=== PATIENT | female | born 1985 | race Caucasian/White ===

== ENCOUNTER 2016-08-28 15:56 | Emergency (ER) | payer BC, MEDICAID ==
[2016-08-28 16:30] VITALS: BP 103/59
--- NOTE | 2016-08-28 17:08 | UC ---
Complaint Female HPI - History Of Current Complaint Chief Complaint: [facility] Stated Complaint: PERSONAL Time Seen by Provider: 08/28/16 17:02 Hx Obtained From: Patient Hx Last Menstrual Period: 08/07/16 ?: No Onset/Duration: Gradual Onset, Lasting Weeks - 1, Worse Since - onset Timing: Constant Severity Initially: Mild Severity Currently: Moderate Character: Burning Associated Signs And Symptoms: Positive: Vaginal Discharge - white Related Hx: - 2, Para - 2 - Risk Factors Ectopic Risk Factor: Maternal Age ^ 30 - Allergies/Home Medications Allergies/Adverse Reactions: Allergies Allergy/AdvReac Type Severity Reaction Status Date / Time Amoxicillin [From Augmentin] AdvReac See Comment Verified 08/28/16 16:30 Clavulanic Acid AdvReac See Comment Verified 08/28/16 16:30 [From Augmentin] Home Medications: Home Medications Gabapentin CAP(*) [Neurontin 100 mg CAP(*)] 1 tab PO QID 08/28/16 [History Confirmed 08/28/16] Risperidone 2.5 mg PO BID 08/28/16 [History Confirmed 08/28/16] PMH/Surg Hx/FS Hx/Imm Hx Previously Healthy: Yes Other History Of: Negative For: HIV - Surgical History Surgical History: None - Family History Known Family History: Positive: Unknown - Adopted. - Social History Occupation: Employed Full-time Lives: With Family Alcohol Use: None Substance Use Type: None Substance Use Comment - Amount & Last Used: CAFFEINE Smoking Status (MU): Heavy Every Day Tobacco Smoker Type: Cigarettes Amount Used/How Often: 1/2-1 PPD Length of Time of Smoking/Using Tobacco: 16 YRS Cessation Counseling: Patient Advised to Stop Review of Systems All Other Systems Reviewed And Are Negative: Yes Physical Exam Triage Information Reviewed: Yes Appearance: Well-Appearing, No Pain Distress, Well-Nourished Vital Signs: Initial Vital Signs Temp 98.4 F 08/28/16 16:25 Pulse 89 08/28/16 16:25 Resp 16 08/28/16 16:25 BP 103/59 08/28/16 16:25 Pulse Ox 97 08/28/16 16:25 Vital Signs Reviewed: Yes Eyes: Positive: Conjunctiva Clear ENT: Positive: Pharynx normal, TMs normal Neck exam: Normal Respiratory Exam: Normal Cardiovascular Exam: Normal Abdomen Description: Negative: Nontender - Mild right lower quadrant, McBurney' s Point Tenderness, Peritoneal Signs Musculoskeletal Exam: Normal Neurological Exam: Normal Psychological Exam: Normal Skin Exam: Normal Complaint Female Dx - Differential Dx/Diagnosis Differential Diagnosis/HQI/PQRI: Appendicitis, Cervicitis, Urinary Tract Infection Provider Diagnoses: Vaginitis Discharge - Discharge Plan Condition: Stable Disposition: HOME Prescriptions: Fluconazole [Fluconazole 150 mg tab] 150 mg PO ONCE #1 tab Metronidazole [Flagyl 500 MG TAB] 500 mg PO BID #14 tab Patient Education Materials: Bacterial Vaginosis (ED), Vaginitis (ED), Fluconazole (By mouth), Metronidazole (By mouth)
== END 2016-08-28 17:27 | disposition home or self-care (01) ==
LOC: UCCORT 15:56
DX: N76.0 Acute vaginitis (principal); F17.210 Nicotine dependence, cigarettes, uncomplicated
CPT/HCPCS: 99212; G0463

== ENCOUNTER 2017-12-03 16:15 | Emergency (ER) | payer BC ==
--- NOTE | 2017-12-03 16:24 | UC ---
Skin Complaint HPI - HPI Summary HPI Summary: 32 yo female presents with sore to the underside of her upper lip noticed last night. She is very concerned about this because she has a hx of genital herpes and is concerned this is a sign of an outbreak. She denies injury, fever, chills. She is still smoking daily. - History of Current Complaint Time Seen by Provider: 12/03/17 16:24 Stated Complaint: SORE ON LIP Hx Obtained From: Patient Hx Last Menstrual Period: 08/07/16 Onset/Duration: Sudden Onset Onset Severity: Mild Current Severity: Mild Pain Intensity: 3 Pain Scale Used: 0-10 Numeric - Allergy/Home Medications Allergies/Adverse Reactions: Allergies Allergy/AdvReac Type Severity Reaction Status Date / Time amoxicillin Allergy Intermediate fainting Verified 12/03/17 16:20 clavulanic acid Allergy Intermediate fainting Verified 12/03/17 16:20 Review of Systems Constitutional: Negative Skin: Other - Lip lesions ENT: Negative Respiratory: Negative Cardiovascular: Negative Gastrointestinal: Negative Neurological: Negative Psychological: Negative All Other Systems Reviewed And Are Negative: Yes PMH/Surg Hx/FS Hx/Imm Hx Psychological History: Anxiety Other History Of: Negative For: HIV - Surgical History Surgical History: None - Family History Known Family History: Positive: Unknown - Adopted. - Social History Occupation: Employed Full-time Lives: With Family Alcohol Use: None Substance Use Type: None Substance Use Comment - Amount & Last Used: CAFFEINE Smoking Status (MU): Heavy Every Day Tobacco Smoker Type: Cigarettes Amount Used/How Often: 1/2-1 PPD Length of Time of Smoking/Using Tobacco: 16 YRS Physical Exam - Summary Physical Exam Summary: GENERAL: NAD. WDWN. No pain distress. SKIN: Underside of upper lip with 1mm blister with erythematous base. Mild TTP. No drainage or open wound. HEENT: Head: AT/NC Throat: Posterior oropharynx without exudates, erythema, or tonsillar enlargement. Uvula midline. NECK: Supple. Nontender. No lymphadenopathy. CHEST: CTAB. No r/r/w. No accessory muscle use. Breathing comfortably and in no distress. CV: RRR. Without m/r/g. Pulses intact. Cap refill <2seconds NEURO: Alert. PSYCH: Age appropriate behavior. Triage Information Reviewed: Yes Vital Signs: Vital Signs: Temp Pulse Resp BP Pulse Ox 98.3 F 99 18 134/89 98 10/14/18 16:21 12/03/17 16:21 12/03/17 16:21 12/03/17 16:21 12/03/17 16:21 Vital Signs Reviewed: Yes Course/Dx - Course Course Of Treatment: Suspect cold sore. Will treat with acyclovir cream. - Diagnoses Provider Diagnoses: Cold sore Discharge - Sign-Out/Discharge Documenting (check all that apply): Patient Departure All imaging exams completed and their final reports reviewed: No Studies - Discharge Plan Condition: Stable Disposition: HOME Prescriptions: Acyclovir OINT 5%(NF) [Zovirax Oint 5%(NF)] 1 applic TOPICAL QID #1 tube Patient Education Materials: Oral Herpes Simplex Virus Infections (ED) Forms: *Work Release Referrals: Jasmyn Purvis MD [Primary Care Provider] - Additional Instructions: If you develop a fever, shortness of breath, chest pain, new or worsening symptoms - please call your PCP or go to the ED. Your blood pressure was high at todays visit. Please see your primary provider within 4 weeks for recheck and re-evaluation. - Billing Disposition and Condition Condition: STABLE Disposition: Home
[2017-12-03 16:28] VITALS: BP 134/89
== END 2017-12-03 16:44 | disposition home or self-care (01) ==
LOC: UCEAST 16:15
DX: B00.1 Herpesviral vesicular dermatitis (principal); R03.0 Elevated blood-pressure reading, without diagnosis of hypertension; F17.210 Nicotine dependence, cigarettes, uncomplicated; Z88.1 Allergy status to other antibiotic agents
CPT/HCPCS: 99212; G0463

== ENCOUNTER 2019-06-02 14:33 | Emergency (ER) | payer BC ==
--- NOTE | 2019-06-02 15:21 | UC ---
UC General HPI - HPI Summary HPI Summary: Nurse's notes: Pt. experiencing anxiety past 3 nights. Pt. states that she can hear other people's voice in her own mind when they are not speaking, pt. has been very thirsty past 2 days, lips burning, loose stools past wk. Upon my entrance into the room, patient states to me that she would like her gabapentin increased. She informed me she had called her doctor's office and left a message but no one had called her back. - History of Current Complaint Chief Complaint: UCGeneralIllness Stated Complaint: PERSONAL Time Seen by Provider: 06/02/19 14:39 Hx Obtained From: Patient Hx Last Menstrual Period: iud Onset/Duration: Gradual Onset Timing: Constant Onset Severity: Mild Current Severity: Mild Pain Intensity: 3 - Allergy/Home Medications Allergies/Adverse Reactions: Allergies Allergy/AdvReac Type Severity Reaction Status Date / Time amoxicillin Allergy Intermediate fainting Verified 06/02/19 14:43 clavulanic acid Allergy Intermediate fainting Verified 06/02/19 14:43 Home Medications: Home Medications Mv-Min/Iron/Folic/Calcium/Vitk [Women's Multivitamin Tablet] 1 tab PO DAILY [History Confirmed 06/02/19] Docosanol 10%* [Abreva 10%*] 1 applic TOPICAL ONCE PRN 06/02/19 [History Confirmed 06/02/19] FLUoxetine CAP* [PROzac CAP*] 20 mg PO DAILY 06/02/19 [History Confirmed ] Gabapentin 300 mg PO BID 06/02/19 [History Confirmed 06/02/19] Ibuprofen TAB* [Advil TAB*] 400 mg PO Q6H PRN 06/02/19 [History Confirmed ] Levonorgestrel (Iud) [Liletta IUD] 18.6 mcg IU ONCE 06/02/19 [History Confirmed 06/02/19] Valacyclovir HCl [Valacyclovir] 1,000 mg PO TID PRN 06/02/19 [History Confirmed 06/02/19] Varenicline Tartrate [Chantix] 1 mg PO DAILY 06/02/19 [History Confirmed ] diphenhydrAMINE HCl [Benadryl Allergy] 25 mg PO BEDTIME PRN 06/02/19 [History Confirmed 06/02/19] PMH/Surg Hx/FS Hx/Imm Hx Previously Healthy: Yes Psychological History: Bipolar Disorder Other History Of: Negative For: HIV - Surgical History Surgical History: None - Family History Known Family History: Positive: Unknown - Adopted. - Social History Alcohol Use: Weekly Substance Use Type: Marijuana Substance Use Comment - Amount & Last Used: CAFFEINE Smoking Status (MU): Heavy Every Day Tobacco Smoker Type: Cigarettes Amount Used/How Often: 1 PPD Length of Time of Smoking/Using Tobacco: 17 YRS Have You Smoked in the Last Year: Yes Household Exposure Type: Cigarettes Review of Systems All Other Systems Reviewed And Are Negative: Yes Psychological: Positive: Anxious Is Patient Immunocompromised?: No Physical Exam Triage Information Reviewed: Yes Appearance: Well-Appearing, No Pain Distress, Well-Nourished, Other: - Pt left without vital signs being taken Vital Signs Reviewed: No Eyes: Positive: Conjunctiva Clear Course/Dx - Course Course Of Treatment: After talking with the nurse who had talked with the patient over the phone ( due to COVID-19), and after discussing the patient's conversation with Dr. Triplett, I entered the room and spoke with the patient. She states she had called her doctor's office and left a message but no one had called her back. She states her sister told her she needs her Gabapentin increased. I advised her we cannot increase the Gabapentin and she should call her PCP. When I advised her that we feel she should be further evaluated in the ER, based on the information she provided to the nurse, she said "Nope, thanks for nothing" and left. - Diagnoses Provider Diagnosis: Medication requested by patient but not prescribed or administered Discharge ED - Sign-Out/Discharge Documenting (check all that apply): Patient Departure All imaging exams completed and their final reports reviewed: No Studies - Discharge Plan Condition: Good Disposition: ELOPEMENT Referrals: Jasmyn Purvis MD [Primary Care Provider] - - Billing Disposition and Condition Condition: GOOD Disposition: Elopement - Attestation Statements Provider Attestation: I was available for consult. This patient was seen by the SOURAV. The patient care was discussed but not seen by or examined by me . Patient reported to the triage nurse that she was able to hear what other people are thinking when she is walking on the sidewalk for past 3 days. We discussed that she would need psyche evaluation and was discussed with the patient. Patient apparently eloped without any further conversation or physical exam. -Tracy Triplett MD
== END 2019-06-02 15:05 | disposition left against medical advice (07) ==
LOC: UCCORT 14:33
DX: F41.9 Anxiety disorder, unspecified (principal); Z88.1 Allergy status to other antibiotic agents; Z88.0 Allergy status to penicillin; F17.210 Nicotine dependence, cigarettes, uncomplicated
CPT/HCPCS: 99212; G0463

== ENCOUNTER 2019-07-16 13:57 | Inpatient (IN) ==
[2019-07-16] MEDS ORDERED: Al Hydrox/Mg Hydrox/Simet LIQ 30 ML UDC PO PRN (16:45)
[2019-07-16] MEDS: Trimethop/Sulfamethox 800/160 TAB PO SCH (22:06)
[2019-07-17] MEDS: Vitamin THERAPEUTIC TAB PO SCH (09:00)
[2019-07-17] MEDS: Trimethop/Sulfamethox 800/160 TAB PO SCH ×2 (09:00→22:45)
[2019-07-17] MEDS: Nicotine GUM 4MG FRUIT FLAVOR PO PRN ×3 (09:10→17:20)
[2019-07-17] MEDS ORDERED: Heparin DIALYSIS ONLY(*) 1,000 UNITS/ML VIAL DIALYSIS ONE (12:23)
[2019-07-17] MEDS: VALACYCLOVIR 500 MG PO SCH (16:32)
[2019-07-17] MEDS: Lurasidone 80 mg TAB (*) PO SCH (17:17)
[2019-07-18] MEDS: Nicotine GUM 4MG FRUIT FLAVOR PO PRN ×5 (06:45→20:17)
[2019-07-18 08:21] LABS: ABS Basophils 0.1 10^3/ul (0-0.2); ABS Eosinophils 0.4 10^3/ul (0-0.6); ABS Lymphocytes 2.6 10^3/ul (1.0-4.8); ABS Monocytes 0.8 10^3/ul (0-0.8); Eosinophil % 4.2 %; Hematocrit 40 % (35-47); Hemoglobin 13.7 g/dL (12.0-16.0); Lymphocyte % 24.6 %; Mean Corpuscular HGB Conc 34 g/dL (31-36); Mean Corpuscular Hemoglobin 32 pg (27-31); Mean Corpuscular Volume 93 fL (80-97); Mean Platelet Volume 8.3 fL (7.4-10.4); Platelet Count 280 10^3/uL (150-450); Red Blood Count 4.31 10^6 /uL (3.70-4.87); Red Cell Distribution Width 14 % (10-15); White Blood Count 10.4 10^3/uL (3.5-10.8)
[2019-07-18 08:36] LABS: Albumin/Globulin Ratio 1.5 (1-3); EGFR African American 76.3 (>60); EGFR Non-African American 63.1 (>60); Globulin 2.6 g/dL (2-4); HDL Cholesterol 40.1 mg/dL; Potassium 4.2 mmol/L (3.5-5.0); Total Bilirubin 0.3 mg/dL (0.2-1.0); Total Protein 6.6 g/dL (6.4-8.9)
[2019-07-18] MEDS: Trimethop/Sulfamethox 800/160 TAB PO SCH ×2 (08:57→20:13)
[2019-07-18] MEDS: Vitamin THERAPEUTIC TAB PO SCH (08:57)
[2019-07-18 09:01] LABS: Lithium 0.4 mmol/L (0.6-1.2)
[2019-07-18] MEDS: CMCS - OMEGA-3 FATTY ACID 1000 mg(NF) PO SCH (09:03)
[2019-07-18] MEDS: VALACYCLOVIR 500 MG PO SCH (09:05)
[2019-07-18] MEDS: Nicotine PATCH 21 MG/24 HR PATCH TRANSDERM PRN (13:04)
[2019-07-18] MEDS ORDERED: Nicotine Lozenge mini 2 MG LOZNG.MINI MT PRN (16:02)
[2019-07-18] MEDS: Lurasidone 80 mg TAB (*) PO SCH (16:59)
[2019-07-19] MEDS: Nicotine GUM 4MG FRUIT FLAVOR PO PRN ×5 (04:53→20:30)
[2019-07-19] MEDS: Vitamin THERAPEUTIC TAB PO SCH (08:43)
[2019-07-19] MEDS: Trimethop/Sulfamethox 800/160 TAB PO SCH ×2 (08:43→20:27)
[2019-07-19] MEDS: CMCS - OMEGA-3 FATTY ACID 1000 mg(NF) PO SCH (08:44)
[2019-07-19] MEDS: VALACYCLOVIR 500 MG PO SCH (08:44)
[2019-07-19] MEDS: Nicotine PATCH 21 MG/24 HR PATCH TRANSDERM PRN (10:21)
[2019-07-19] MEDS: Lurasidone 80 mg TAB (*) PO SCH (17:18)
[2019-07-20] MEDS: Nicotine GUM 4MG FRUIT FLAVOR PO PRN ×5 (02:13→21:12)
[2019-07-20] MEDS: Trimethop/Sulfamethox 800/160 TAB PO SCH ×2 (08:26→21:08)
[2019-07-20] MEDS: CMCS - OMEGA-3 FATTY ACID 1000 mg(NF) PO SCH (08:27)
[2019-07-20] MEDS: Vitamin THERAPEUTIC TAB PO SCH (08:27)
[2019-07-20] MEDS: VALACYCLOVIR 500 MG PO SCH (08:27)
[2019-07-20] MEDS: Nicotine PATCH 21 MG/24 HR PATCH TRANSDERM PRN (09:27)
[2019-07-20] MEDS: Lurasidone 80 mg TAB (*) PO SCH (21:09)
[2019-07-21] MEDS: Nicotine GUM 4MG FRUIT FLAVOR PO PRN ×3 (07:14→20:30)
[2019-07-21] MEDS: Trimethop/Sulfamethox 800/160 TAB PO SCH ×2 (08:14→20:31)
[2019-07-21] MEDS: VALACYCLOVIR 500 MG PO SCH (08:14)
[2019-07-21] MEDS: Vitamin THERAPEUTIC TAB PO SCH (08:15)
[2019-07-21] MEDS: CMCS - OMEGA-3 FATTY ACID 1000 mg(NF) PO SCH (08:16)
[2019-07-21] MEDS: Nicotine PATCH 21 MG/24 HR PATCH TRANSDERM PRN (08:18)
[2019-07-21] MEDS: Lurasidone 80 mg TAB (*) PO SCH (21:15)
[2019-07-22] MEDS: Vitamin THERAPEUTIC TAB PO SCH (09:16)
[2019-07-22] MEDS: Trimethop/Sulfamethox 800/160 TAB PO SCH ×2 (09:17→20:59)
[2019-07-22] MEDS: VALACYCLOVIR 500 MG PO SCH (09:21)
[2019-07-22] MEDS: CMCS - OMEGA-3 FATTY ACID 1000 mg(NF) PO SCH (09:22)
[2019-07-22] MEDS: Nicotine PATCH 21 MG/24 HR PATCH TRANSDERM PRN (09:26)
[2019-07-22] MEDS: Nicotine GUM 4MG FRUIT FLAVOR PO PRN ×4 (09:27→21:02)
[2019-07-22] MEDS: Lurasidone 80 mg TAB (*) PO SCH (20:58)
[2019-07-23] MEDS: CMCS - OMEGA-3 FATTY ACID 1000 mg(NF) PO SCH (08:24)
[2019-07-23] MEDS: Trimethop/Sulfamethox 800/160 TAB PO SCH ×2 (08:24→21:29)
[2019-07-23] MEDS: Vitamin THERAPEUTIC TAB PO SCH (08:24)
[2019-07-23] MEDS: VALACYCLOVIR 500 MG PO SCH (08:24)
[2019-07-23] MEDS: Nicotine PATCH 21 MG/24 HR PATCH TRANSDERM PRN (08:28)
[2019-07-23] MEDS: Nicotine GUM 4MG FRUIT FLAVOR PO PRN ×5 (08:28→21:32)
[2019-07-23] MEDS: Lurasidone 80 mg TAB (*) PO SCH (21:28)
[2019-07-24] MEDS: CMCS - OMEGA-3 FATTY ACID 1000 mg(NF) PO SCH (08:38)
[2019-07-24] MEDS: VALACYCLOVIR 500 MG PO SCH (08:38)
[2019-07-24] MEDS: Trimethop/Sulfamethox 800/160 TAB PO SCH ×2 (08:39→21:31)
[2019-07-24] MEDS: Vitamin THERAPEUTIC TAB PO SCH (08:39)
[2019-07-24] MEDS: Nicotine GUM 4MG FRUIT FLAVOR PO PRN ×4 (08:41→21:35)
[2019-07-24] MEDS: Nicotine PATCH 21 MG/24 HR PATCH TRANSDERM PRN (08:42)
[2019-07-24] MEDS: Lurasidone 80 mg TAB (*) PO SCH (21:31)
[2019-07-25] MEDS: CMCS - OMEGA-3 FATTY ACID 1000 mg(NF) PO SCH (08:27)
[2019-07-25] MEDS: VALACYCLOVIR 500 MG PO SCH (08:27)
[2019-07-25] MEDS: Nicotine PATCH 21 MG/24 HR PATCH TRANSDERM PRN (08:28)
[2019-07-25] MEDS: Vitamin THERAPEUTIC TAB PO SCH (08:28)
[2019-07-25] MEDS: Nicotine GUM 4MG FRUIT FLAVOR PO PRN ×4 (08:28→20:24)
[2019-07-25] MEDS: Trimethop/Sulfamethox 800/160 TAB PO SCH (08:55)
[2019-07-25] MEDS: Lurasidone 80 mg TAB (*) PO SCH (21:56)
[2019-07-26] MEDS: Nicotine GUM 4MG FRUIT FLAVOR PO PRN ×3 (06:28→14:45)
[2019-07-26 08:13] VITALS: BP 94/58
[2019-07-26] MEDS: CMCS - OMEGA-3 FATTY ACID 1000 mg(NF) PO SCH (08:27)
[2019-07-26] MEDS: VALACYCLOVIR 500 MG PO SCH (08:27)
[2019-07-26] MEDS: Vitamin THERAPEUTIC TAB PO SCH (08:27)
[2019-07-26] MEDS: Nicotine PATCH 21 MG/24 HR PATCH TRANSDERM PRN (08:31)
== END 2019-07-26 15:42 | disposition home or self-care (01) | DRG 753 ==
LOC: ED 13:57 → BSU 16:45
PROVIDERS: ADMIT Psychiatry & Neurology Psychiatry; ATTEND Psychiatry & Neurology Psychiatry